=== PATIENT | female | born 2000 | race Caucasian/White ===

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

== ENCOUNTER 2022-05-05 19:40 | Emergency (ER) | payer BC ==
[2022-05-05] MEDS ORDERED: Ondansetron 4 MG/2 ML SDV IVPUSH ONE (20:49)
[2022-05-05] MEDS ORDERED: Sodium Chloride 0.9% 1,000 ML IV ONE (20:49)
[2022-05-05 21:36] LABS: CARBON DIOXIDE,CO2 29.3 mmol/L (21.0-32.0); POTASSIUM,K 3.9 mmol/L (3.5-5.1)
== END 2022-05-05 23:32 | disposition home or self-care (01) ==
LOC: MW.ED 19:40
DX: R11.2 Nausea with vomiting, unspecified (principal)
CPT/HCPCS: 36415; 80053; 80305; 81003; 81025; 85025; 96361; 96374; 99284; J2405; J7030

== ENCOUNTER 2022-09-08 17:16 | Emergency (ER) | payer BC ==
[2022-09-08] MEDS ORDERED: Ketorolac 60 MG/2 ML SDV IM ONE (18:14)
== END 2022-09-08 18:37 | disposition home or self-care (01) ==
LOC: MW.ED 17:16
DX: O03.9 Complete or unspecified spontaneous abortion without complication (principal)
CPT/HCPCS: 96372; 99283; J1885; 99284

== ENCOUNTER 2023-03-15 12:46 | Emergency (ER) | payer SELFPAY ==
[2023-03-15] MEDS ORDERED: Ondansetron 4 MG/2 ML SDV IVPUSH ONE (15:51)
[2023-03-15] MEDS ORDERED: Sodium Chloride 0.9% 2.5 ML Syringe FLUSH PRN (15:51)
[2023-03-15] MEDS ORDERED: Famotidine 20 MG/2 ML SDV IVPUSH ONE (15:51)
[2023-03-15] MEDS ORDERED: Sodium Chloride 0.9% 1,000 ML IV ONE (15:51)
[2023-03-15] MEDS ORDERED: Sodium Chloride 0.9% 10 ML Syringe FLUSH PRN (15:51)
[2023-03-15 16:14] LABS: BASOPHILS ABSOLUTE AUTO 0.09 K/uL (0.00-0.20); EOSINOPHILS ABSOLUTE AUTO 0.21 K/uL (0.00-0.45); EOSINOPHILS PERCENT AUTO 2.4 % (0.0-6.0); HEMATOCRIT 43.3 % (37.0-47.0); HEMOGLOBIN 15.3 g/dL (12.0-16.0); IMMATURE GRAN ABSOLUTE AUTO 0.02 K/uL (0.00-0.05); IMMATURE GRAN PERCENT AUTO 0.2 % (0.0-0.4); LYMPHOCYTES ABSOLUTE AUTO 2.43 K/uL (1.00-4.80); LYMPHOCYTES PERCENT AUTO 28.1 % (24.0-44.0); MEAN CORPUSCULAR HEMOGLOBIN 28.3 pg (28.0-32.0); MEAN CORPUSCULAR HGB CONC 35.3 g/dL (32.0-36.0); MONOCYTES PERCENT AUTO 8.1 % (0.0-8.0); NEUTROPHILS PERCENT AUTO 60.2 % (41.0-71.0); PLATELET COUNT,PLT 315 K/uL (150-400); RED BLOOD CELL COUNT 5.41 M/uL (4.10-5.30); WHITE BLOOD CELL COUNT,WBC 8.65 K/uL (3.9-11.3)
[2023-03-15 16:42] LABS: A/G RATIO 1.6 (0.9-1.6); BILIRUBIN TOTAL 1.1 mg/dL (0.2-1.0); CALCIUM 9.9 mg/dL (8.5-10.1); CARBON DIOXIDE,CO2 23.2 mmol/L (21.0-32.0); CREATININE 0.8 mg/dL (0.6-1.0); EST CRCL DRUG DOSING (CG) 96.86 mL/min; POTASSIUM,K 3.4 mmol/L (3.5-5.1); PROTEIN TOTAL,TP 8.1 g/dL (6.4-8.2)
[2023-03-15 16:55] LABS: CORONAVIRUS COVID-19 NAA NEGATIVE (NEGATIVE); INFLUENZA A NAA NEGATIVE (NEGATIVE); INFLUENZA B NAA NEGATIVE (NEGATIVE)
== END 2023-03-15 18:29 | disposition home or self-care (01) ==
LOC: MW.ED 12:46
DX: R11.15 Cyclical vomiting syndrome unrelated to migraine (principal)
CPT/HCPCS: 0240U; 36415; 76705; 80053; 83690; 84703; 85025; 96361; 96374; 96375; 99284; J2405; J3490; J7030

== ENCOUNTER 2024-12-08 23:47 | Inpatient (IN) | payer BC, MEDICAID ==
[2024-12-09] MEDS: Lactated Ringers 1,000 ML IV SCH (00:15)
[2024-12-09] MEDS ORDERED: Water For Irrigation,Sterile 1,000 ML Container IRR PRN (00:34)
[2024-12-09] MEDS ORDERED: Butorphanol 1 MG/ML SDV IVPUSH PRN (00:34)
[2024-12-09] MEDS ORDERED: Sodium Chloride 0.9% 2.5 ML Syringe FLUSH PRN (00:34)
[2024-12-09] MEDS ORDERED: Carboprost Tromethamine 250 MCG/1 mL Vial IM PRN (00:34)
[2024-12-09] MEDS ORDERED: Sodium Chloride 0.9% 10 ML Syringe FLUSH PRN (00:34)
[2024-12-09] MEDS ORDERED: Ondansetron 4 MG/2 ML SDV IVPUSH PRN ×2 (00:34→05:08)
[2024-12-09 00:45] LABS: MEAN PLATELET VOLUME 9.3 fL (9.4-12.3); NRBC ABSOLUTE 0.00 K/uL (0.00-0.02); NRBC PERCENT 0.0 /100WBC (0.0-0.2); PLATELET COUNT,PLT 351 K/uL (150-400); RED BLOOD CELL COUNT 4.06 M/uL (4.10-5.30); WHITE BLOOD CELL COUNT,WBC 17.95 K/uL (3.9-11.3)
[2024-12-09] MEDS ORDERED: Oxytocin/0.9 % Sodium Chloride 30 UNIT/500 ML BAG IV SCH (00:45)
[2024-12-09] MEDS ORDERED: ePHEDrine 50 MG/ML SDV IVPUSH PRN (01:05)
[2024-12-09] MEDS: Ropivacaine HCl/PF 400 MG in Premix Bag 1 BAG EPIDUR SCH (01:05)
[2024-12-09] MEDS ORDERED: dexmedeTOMIDine HCl 200 MCG/2 ML SDV EPIDUR SCH (01:15)
[2024-12-09] MEDS ORDERED: fentaNYL 100 MCG/2 ML SDV ONE (03:02)
[2024-12-09] MEDS ORDERED: Ondansetron 4 MG/2 ML SDV ONE ×2 (03:02→03:46)
[2024-12-09] MEDS ORDERED: Morphine PF 10 MG/10 ML SDV ONE (03:02)
[2024-12-09] MEDS ORDERED: Ropivacaine 0.5% 5 MG/ML 30 ML SDV ONE (03:15)
[2024-12-09] MEDS ORDERED: Dexamethasone 4 MG/ML 5 ML MDV ONE (03:15)
[2024-12-09] MEDS ORDERED: Oxytocin 10 Units/1 ML SDV ONE (03:30)
[2024-12-09] MEDS ORDERED: diphenhydrAMINE 50 MG/ML SDV IVPUSH PRN (05:08)
[2024-12-09] MEDS ORDERED: Naloxone 0.4 MG/ML SDV IVPUSH PRN (05:08)
[2024-12-09] MEDS ORDERED: Oxytocin 10 Units/1 ML SDV IM PRN (05:08)
[2024-12-09] MEDS ORDERED: Lactated Ringers 1,000 ML IV SCH (05:15)
[2024-12-09] MEDS: Ketorolac 30 MG/ML SDV IVPUSH SCH ×2 (05:55→16:51)
[2024-12-10] MEDS: Lanolin 100% Cream 7 GM Tube TOP PRN (13:08)
[2024-12-10] MEDS: Acetaminophen/oxyCODONE 325-5 MG Tab PO PRN (18:05)
[2024-12-10] MEDS: Acetaminophen/HYDROcodone 325-10 MG Tab PO ONE (23:44)
== END 2024-12-11 11:45 | disposition home or self-care (01) | DRG 540 ==
LOC: MW.OBCHECK 23:47 → MW.OB 12-09 00:07 → MW.OBCHECK 12-09 00:40 → OBSVTOIN 12-09 00:43 → MW.OB 12-09 00:43
PROVIDERS: ADMIT Obstetrics & Gynecology Gynecology; ATTEND Obstetrics & Gynecology Gynecology
PROC: 10D00Z1 Extraction of Products of Conception, Low, Open Approach (ICD-10-PCS; principal; 2024-12-09 03:20)
DX: O99.344 Other mental disorders complicating childbirth (principal); Z3A.38 38 weeks gestation of pregnancy; Z37.0 Single live birth
CPT/HCPCS: 01967; 01968; 36415; 51702; 59025; 64999; 85014; 85018; 85027; 86592; 86850; 86900; 86901; 99140; A9270-GY; J0456; J0665; J0690; J1100; J1885; J2274; J2371; J2405; J2590; J2795; J3010; J7120